=== PATIENT | male | born 1955 | race Caucasian/White ===

== ENCOUNTER 2023-11-14 10:57 | Day surgery (SDC) | payer OTHER, SELFPAY ==
[2023-11-14] VITALS (9 sets, daily range): BP systolic 126–150; BP diastolic 72–88; BMI 37.9
[2023-11-14] MEDS: LOW STRENGTH ASPIRIN 81 MG PO (12:07)
[2023-11-14] MEDS: NSS 359 ML IV (12:10)
--- NOTE | 2023-11-14 14:24 | ITS.CL.CATH ---
Labor Relations Manager - Catheterization
Cardiac Catheterization
Procedure Report:
CARDIAC CATHETERIZATION REPORT
Date of Procedure: 11/14/2023
Referring: Srinivasan Nunez DO
Indication: Elevated calcium score with exertional dyspnea
HEMODYNAMIC DATA
AO: 128/76
LV: 128/15
LEFT VENTRICULOGRAPHY: Normal left ventricular wall motion with EF 63%
CORONARY ANGIOGRAPHY
Dominance: Right
Left Main: Normal
LAD: Trivial luminal irregularities
Circumflex: 30% proximal OM 3 stenosis and 30% proximal stenosis and a medium sized terminal left posterolateral branch otherwise mild luminal irregularities
RCA: Large dominant vessel with 20% mid stenosis and otherwise mild luminal irregularities
Closure Device: None-the procedure was performed via the right radial artery. The Shane's test was normal prior to the procedure.
Radiation (mGy): 452
DAP (cm2.Gy): 40.9
Fluoroscopy time: 3.2 minutes
CONCLUSIONS
1: Normal left ventricular function with EF 63%
2: Very mild noncritical CAD as described
3. Continue aspirin and statin to achieve LDL less than 70
Copy to: Srinivasan Nunez DO, Everette Perez DO
Ryan Barragan MD, [facility], [facility]
== END 2023-11-14 16:50 | disposition home or self-care (01) ==
LOC: CATH 10:57
PROVIDERS: ATTENDING PHYSICIAN Internal Medicine Cardiovascular Disease; FAMILY PHYSICIAN Family Medicine; OTHER PHYSICIAN Internal Medicine Cardiovascular Disease
DX: I25.10 Atherosclerotic heart disease of native coronary artery without angina pectoris (principal); E78.5 Hyperlipidemia, unspecified; Z79.82 Long term (current) use of aspirin
CPT/HCPCS: 93458; C1894; Q9967